=== PATIENT | female | born 1940 | race Caucasian/White ===

== ENCOUNTER → 2016-05-07 | Outpatient (CLI) | payer MEDICARE ==
[~2016-05-07] MED LIST: AMARYL4 MG PO; AMLODIPINE-BEN1 EAC5 PO; ASPIRIN LO-DOSE81 MG PO; DECADRON4 MG PO; DETROL2 MG PO; GLUCOPHAGE1000 MG PO; LIDOCAINE-PRILO30 GM TOP; NORCO 5-325 TA1 EACH PO; PRINIVIL (ZESTRI5 MG PO; TOPROL XL 5050 MG PO; VITAMIN B-6100 MG PO; ZOCOR20 MG PO
== END | disposition disaster alternative care site (69) ==
LOC: GKIC 09:34
DX: C50.111 Malignant neoplasm of central portion of right female breast (principal); C77.3 Secondary and unspecified malignant neoplasm of axilla and upper limb lymph nodes; R91.8 Other nonspecific abnormal finding of lung field; K76.89 Other specified diseases of liver; D70.1 Agranulocytosis secondary to cancer chemotherapy
CPT/HCPCS: A9552

== ENCOUNTER → 2016-05-17 | Outpatient (CLI) | payer MEDICARE, OTHER ==
[2016-05-17 14:22] LABS: HEMATOCRIT 30.1 % (33.0-46.0); HEMOGLOBIN 10.1 g/dL (10.0-15.0); MCH 32.6 pg (27.0-34.0); MCHC 33.6 gm/dL (32.0-36.5); MCV 97.1 fl (83.0-98.0); MPV 10.4 fl (9.4-12.4); PLATELET COUNT 184 K/uL (150-450); RDW-CV 12.8 % (11.9-14.6); WBC 7.2 K/uL (4.0-11.0)
[2016-05-17 14:33] LABS: INR - (THERAPEUTIC) 1.1 (0.9-1.1); PROTIME 11.2 SECONDS (9.6-11.1); PTT 26 SECONDS (25-32)
[2016-05-17 14:38] LABS: ALBUMIN 3.4 gm/dL (3.5-5.0); ALK PHOS 69 IU/L (33-138); ALT 18 IU/L (12-78); AST 16 IU/L (10-40); BLOOD UREA NITROGEN 14 mg/dL (6-24); CALCIUM 8.9 mg/dL (8.5-10.5); CHLORIDE 104 mMol/L (96-110); CO2 25 mMol/L (22-32); CREATININE 0.8 mg/dL (0.5-1.1); ESTIMATED GFR (MDRD EQUATION) > 60; SODIUM 141 mMol/L (135-145); TOTAL BILIRUBIN 0.3 mg/dL (0.0-1.5); TOTAL PROTEIN 6.9 g/dL (6.0-8.4)
[2016-05-17 14:47] LABS: ABSOLUTE NEUTROPHIL CT (ANC) 5.9 K/uL (1.8-7.8); BANDED NEUTROPHIL # 1.4 K/uL (0.0-0.1); BANDED NEUTROPHILS % 20 %; LYMPHOCYTE # 0.4 K/uL (0.8-4.0); LYMPHOCYTE % 6 %; MONOCYTE # 0.6 K/uL (0.0-1.0); SEGMENTED NEUTROPHIL # 4.5 K/uL (1.8-7.8); SEGMENTED NEUTROPHIL % 62 %
== END | disposition disaster alternative care site (69) ==
LOC: GRAD 05-11 13:00
PROVIDERS: Internal Medicine Hematology & Oncology
PROC: 0F923ZX Drainage of Left Lobe Liver, Percutaneous Approach, Diagnostic (ICD-10-PCS; principal; 2016-05-17)
DX: K76.0 Fatty (change of) liver, not elsewhere classified (principal); K76.89 Other specified diseases of liver; D70.1 Agranulocytosis secondary to cancer chemotherapy; C50.111 Malignant neoplasm of central portion of right female breast
CPT/HCPCS: J2001; J7030

== ENCOUNTER 2016-09-02 06:25 | Day surgery (SDC) | payer MEDICARE, OTHER ==
[~2016-09-02] VITALS: Ht 160 cm; Wt 65.1 kg
--- NOTE | ~2016-09-02 | OR ---
PATIENT'S NAME: CHERELLE SUNG [facility] AGE: 76 Y [address] ROOM: [place] [address] LOCATION: [facility] – [place] ADMIT DATE: 09/02/2016 OR/Procedure Report DISCHARGE DATE: FAMILY PHYSICIAN: Dariel Pearson MD ATTENDING PHYSICIAN: Nicho Steward SURGEON: Nicho Steward MD LITHOGRAPHIC PRESS OPERATOR APPRENTICE: DATE OF PROCEDURE: 09/02/2016 PREOPERATIVE DIAGNOSIS: Right breast cancer, status post neoadjuvant treatment. POSTOPERATIVE DIAGNOSIS: Right breast cancer, status post neoadjuvant treatment. PROCEDURES PERFORMED: 1. Right modified radical mastectomy. 2. Left simple mastectomy. FINDINGS: Gross tumor was not palpable or visible. ESTIMATED BLOOD LOSS: 100 mL. COMPLICATIONS: None. INDICATIONS: The patient is a 76-year-old female, who had a right-sided locally advanced breast cancer with lymph node positivity. She had undergone neoadjuvant treatment, and had significant response with her chemotherapy. She was sent back to [facility] to discuss surgical options. Ultimately, she wished for a modified radical mastectomy on the right and a prophylactic simple mastectomy on the left. Risks, benefits, and alternatives were discussed with the patient, and she wished to proceed. DESCRIPTION OF PROCEDURE: The patient was taken to the Operating Room. She was supine and given IV sedation. Chest, neck, axilla, and arms were all prepped with ChloraPrep and sterilely draped. The simple mastectomy was attended to first. The patient had very pendulous breasts with redundant skin making this more difficult, but we were able to create an elliptical incision encompassing the breasts and nipple-areolar complex. After the incision was created, skin flaps were created medially to the sternum, superiorly towards the clavicle, inferiorly to the rectus, and then laterally to the axilla. This was carried all the way to the chest wall. The breast was removed from the chest wall using electrocautery. The operative field was inspected. It appeared hemostatic. A 15-Marshallese round PATIENT'S NAME: CHERELLE SUNG [facility] AGE: 76 Y [address] ROOM: [place] [address] LOCATION: [facility] [place] ADMIT DATE: 09/02/2016 OR/Procedure Report DISCHARGE DATE: FAMILY PHYSICIAN: Dariel Pearson MD ATTENDING PHYSICIAN: Nicho Steward drain was placed. This was sutured into position. Hemostasis was checked and had been obtained. Deep dermal layers were approximated with INSORB brianna and skin with 4-0 Monocryl suture. Following the left mastectomy, the right side was attended to in a similar fashion. An elliptical incision was created, encompassing the nipple-areolar complex. Skin flaps were created in all directions encompassing the entire breast. This was carried down to the chest wall using electrocautery. The breast was then removed from the chest wall using electrocautery. We continued our dissection on the lateral border of the pectoralis muscle. We incised the investing fascia near the axillary vein. We then performed a level 1 and level 2 axillary dissection. Axillary vein was identified, as well as the long thoracic and thoracodorsal nerves. These were preserved. The Harmonic scalpel was used to aid in this dissection. The entire axillary packet was then removed contiguous with the breast. This was all sent for pathologic evaluation. The operative field was then inspected. Two 15-Marshallese round drains were placed through separate stab incisions. These were sutured into position. Operative field was inspected and it appeared hemostatic. Deep dermal layers were approximated with INSORB brianna, followed by skin closure with 4-0 Monocryl suture. Steri-Strips and sterile dressings were placed. The drains were placed to bulb suction. COUNT RESULTS: Sponge, needle, and instrument counts were reported as correct. POSTOPERATIVE CONDITION: The patient tolerated the procedure well. MD ANITA SPAULDING/mag /[id number] d: 09/02/162 t: 09/16/16 193, OPERATIVE SUMMARY
[~2016-09-02 06:25] MED LIST changes: -NORCO 5-325 TA1 EACH PO
--- NOTE | 2016-09-02 17:58 | NUR ---
Significant event:Pt is alert and oriented. VSS. on room air. Had a simple mastectomy to the left and modified radical mastectomy to the right. CAROLYN drains x2 to the right and 1 to the left. Does have a left chest port, not accessed. IV to left forearm with lactated ringers running at 75ml/hr. Is on ACHS, moderate scale. had 4 units at 1700. No complaints of pain, last pain med was oxycodone in PACU at 1203. has ambulated to bathroom, unable to void at this time. Encouraged patient to ambulate in hallway. Is needed, possible bladder scan and may need to call Dr Roberts for straight cath. Incisions to bilateral chest, dressing clean, intact, with very small amounts of drainage. Cooperative with cares.
--- NOTE | 2016-09-03 04:15 | NUR ---
Significant Event: Patient alert and oriented X4. Up with stand by assist and gait belt. IV to L) forearm saline locked. Total of 3 JPs to bilateral chest. Dressings to chest with small output. Intact. Pt took 2 norco around 0138 for mild pain, but she wants to stay ahead of it. Vitals stable and on room air. ACHS accuchecks. Mother of Britney- admissions nurse. Daughter helps with cares. Voiding well. Walked in halls X2. Follow up: [facility]
[2016-09-03] MEDS ORDERED: NORCO 5-325 TA1 EACH PO (10:01)
--- NOTE | 2016-09-03 11:58 | NUR ---
Significant Event: Patient alert and oriented x3. Up standby assist. Dressings across chest remain dry and intact with a small amount of shadow drainage present. 3 CAROLYN drains. One labeled "B" has had 110mls out and "C" had out 80mls bloody drainage already. Left forearm IV saline locked. Vitals stable on room air. Denies pain, just discomfort with arm movement. Will be going home today when daughter arrives. Follow up:
--- NOTE | 2016-09-03 14:50 | NUR ---
DISCHARGE: Pt. and daughter were explained discharge instructions, dvt prevention, mastectomy d/c instructions, exercises, drain care, and new medications. No questions or concerns, verbalized understanding of care. Left with drain flow sheet and demonstrated correct drain care techniques to nurse. Left with all belongings and prescriptions. IV removed by RN. Taken to front door by aide and driven home by daughter.
--- NOTE | 2016-09-03 15:34 | NUR ---
ASSUMED PT CARES FROM ELIE AT 1200. PATIENT ALERT AND ORIENTED X3. UP SBA IN ROOM, CAROLYN DRAINS TO CHEST X3. DRAIN A HAD 30MLS OUT, DRAIN B HAD 110MLS OUT, AND DRAIN C HAD 80 MLS OUT. PATIENT PLEASANT AND COOPERATIVE WITH CARE. HTN AT DISCHARGE, 174/107 AND 174/94. NOTIFIED. NO NEW ORDERS. PATIENT DISCHARGED HOME WITH FAMILY. DENIES AND NEEDS/QUESTIONS/CONCERNS AT NC.
== END 2016-09-03 14:50 | disposition disaster alternative care site (69) ==
LOC: UNDOADMIN 06:25 → GMSU 06:25 → GSDC 06:25 → GMSU 06:25 → EDSTATUS 10:00 → GMSU 14:46 → GSDC 09-03 14:50 → GMSU 09-03 14:50
PROC: 0HTT0ZZ Resection of Right Breast, Open Approach (ICD-10-PCS; principal; 2016-09-02)
PROC: 0HTU0ZZ Resection of Left Breast, Open Approach (ICD-10-PCS; 2016-09-02)
DX: C50.911 Malignant neoplasm of unspecified site of right female breast (principal); C77.3 Secondary and unspecified malignant neoplasm of axilla and upper limb lymph nodes; D24.2 Benign neoplasm of left breast; I25.10 Atherosclerotic heart disease of native coronary artery without angina pectoris; E78.00 Pure hypercholesterolemia, unspecified; I10 Essential (primary) hypertension; E11.9 Type 2 diabetes mellitus without complications; E78.5 Hyperlipidemia, unspecified; Z90.710 Acquired absence of both cervix and uterus; Z92.21 Personal history of antineoplastic chemotherapy; Z95.1 Presence of aortocoronary bypass graft; Z98.890 Other specified postprocedural states; Z79.899 Other long term (current) drug therapy; Z79.82 Long term (current) use of aspirin; Z88.0 Allergy status to penicillin; Z88.1 Allergy status to other antibiotic agents; Z88.2 Allergy status to sulfonamides
CPT/HCPCS: J0131; J0690; J1100; J2001; J2250; J2405; J7030; J7120